=== PATIENT | male | born 1970 | race Caucasian/White ===

== ENCOUNTER 2017-05-08 14:22 | Emergency (ER) | payer MEDICARE, OTHER ==
[~2017-05-08] VITALS: Ht 182.9 cm; Wt 116.1 kg
[~2017-05-08 14:22] MED LIST: AMITIZA24 MCG PO; ASPIRIN EC81 M1 PO; ASPIRIN81 M2 PO; ATORVASTATIN CA20 MG PO; BACTRIM DS TABL1 TA1 PO; BUSPAR15 M1 PO; DOCUSATE SODIU100 MG PO; FENOFIBRATE145 M1; FISH OIL500 MG PO; FLUOXETINE HCL20 M1 PO; LEVOTHROID50 MCG PO; LEVOTHYROXINE50 MC1 PO; LIPITOR20 MG PO; LOVAZA1 G PO; MIRALAX17 G1 PO; MIRALAX17 GM DOB; PAROXETINE PO; SENNA S TABLET1 TAB PO; SMOOTHLAX17 GM PO; TORVASTATIN PO; ZANAFLEX PO; ZYLOPRIM100 MG; ZYLOPRIM100 MG PO
== END 2017-05-08 16:10 | disposition home or self-care (01) ==
LOC: SED 14:22
DX: M54.42 Lumbago with sciatica, left side (principal); E78.5 Hyperlipidemia, unspecified; M19.90 Unspecified osteoarthritis, unspecified site; Z79.899 Other long term (current) drug therapy; Z88.8 Allergy status to other drugs, medicaments and biological substances
CPT/HCPCS: 96372; 99283; J1100